=== PATIENT | female | born 1985 | race Two or more races ===

== ENCOUNTER 2022-04-20 19:35 | Emergency (ER) | payer SELFPAY ==
[~2022-04-20] VITALS: Ht 160 cm; Wt 54.5 kg
[2022-04-20] MEDS ORDERED: hydrOXYzine 25 MG TAB or CAP PO ONE (22:30)
[2022-04-21 05:39] VITALS: BP 111/75
== END 2022-04-21 05:46 | disposition home or self-care (01) ==
LOC: ER 19:35
DX: F41.9 Anxiety disorder, unspecified (principal)